=== PATIENT | male | born 1945 | race Caucasian/White ===

== ENCOUNTER 2021-07-22 11:41 | Emergency (ER) | payer MEDICARE, OTHER ==
[~2021-07-22] VITALS: Ht 182.9 cm; Wt 117.9 kg
[2021-07-22] MEDS ORDERED: LORAZEPAM 0.50.5 MG PO (11:52)
[2021-07-22] MEDS ORDERED: OMEPRAZOLE40 MG PO (11:52)
[2021-07-22] MEDS ORDERED: MELOXICAM15 MG PO (11:53)
[2021-07-22] MEDS ORDERED: CLOBETASOL PROP50 M1 TOP (11:53)
[2021-07-22] MEDS ORDERED: ZESTORETIC 20-1 EAC3 PO (11:53)
[2021-07-22] MEDS ORDERED: VITAMIN C500 M2 PO (11:53)
[2021-07-22] MEDS ORDERED: TOPROL XL50 MG PO (11:54)
[2021-07-22] MEDS ORDERED: VITAMIN B12 (11:54)
[2021-07-22] MEDS ORDERED: VITAMIN D3 (11:54)
[2021-07-22] MEDS ORDERED: PREDNISONE 20 M20 M1 PO (12:59)
[2021-07-22] MEDS ORDERED: CEPHALEXIN500 MG PO (12:59)
[2021-07-22 13:03] VITALS: BP 146/76
== END 2021-07-22 13:04 | disposition home or self-care (01) ==
LOC: M.ERS 11:41
DX: I80.02 Phlebitis and thrombophlebitis of superficial vessels of left lower extremity (principal); I10 Essential (primary) hypertension; Z98.890 Other specified postprocedural states; Z79.1 Long term (current) use of non-steroidal anti-inflammatories (NSAID); Z79.899 Other long term (current) drug therapy